=== PATIENT | male | born 1980 | race Caucasian/White ===

== ENCOUNTER 2020-11-28 19:52 | Inpatient (IN) | payer OTHER ==
[2020-11-28] MEDS ORDERED: FAMOTIDINE 20 MG TABLET PO ONE (20:55)
[2020-11-28] MEDS ORDERED: FAMOTIDINE 20 MG TABLET ONE (21:16)
[2020-11-28 21:49] LABS: ARTERIAL BLD GAS O2 SATURATION 96.5 mmHg (95-98); ARTERIAL BLOOD GAS BASE EXCESS -1.9 mmol/L (-2-2); ARTERIAL BLOOD GAS PO2 83.4 mmHg (80-100); ARTERIAL BLOOD GAS pH 7.416 (7.350-7.450)
[2020-11-28 21:50] LABS: ALLENS TEST POSITIVE
[2020-11-28 21:59] LABS: BASO % 0.5 % (0-2.0); EOS % 2.8 % (0-4.5); HEMATOCRIT 47.2 % (35.4-49); LYMPH % 9.3 % (8-40); MCH 31.2 pg (25.7-33.7); MCHC 33.8 g/dl (32.0-35.9); MEAN CELL VOLUME 92.1 fl (80-96); MEAN PLT VOLUME 7.9 fl (7.5-11.1); MONO % 6.4 % (3.8-10.2); PLATELET COUNT 419 K/MM3 (134-434); RBC 5.13 M/mm3 (4.00-5.60); RDW 13.8 % (11.9-15.9); WHITE BLOOD COUNT 20.6 K/mm3 (4.0-10.0)
[2020-11-28 22:17] LABS: CALCIUM 9.4 mg/dL (8.5-10.1)
[2020-11-28 22:18] LABS: BLOOD UREA NITROGEN 23.8 mg/dL (7-18)
[2020-11-28] MEDS ORDERED: LACTATED RINGERS SOLUTION 1000 ML INFUS.BAG IV ONE (22:21)
[2020-11-28 22:22] LABS: BILIRUBIN,TOTAL 0.3 mg/dL (0.2-1); TOT PROT 7.5 g/dl (6.4-8.2)
[2020-11-28 23:12] LABS: ANISOCYTOSIS 0; MACROCYTOSIS 1+; PLATELET ESTIMATE NORMAL
[2020-11-29 00:26] LABS: PH,URINE 5.5 (5.0-8.0); URINE APPEARANCE CLEAR; URINE BILIRUBIN NEGATIVE (NEGATIVE); URINE COLOR YELLOW; URINE GLUCOSE (UA) 1+ (NEGATIVE); URINE KETONE 2+ (NEGATIVE); URINE LEUK ESTERASE NEGATIVE (NEGATIVE); URINE NITRITE NEGATIVE (NEGATIVE); URINE PROTEIN NEGATIVE (NEGATIVE); URINE UROBILINOGEN 0.2 mg/dL (0.2-1.0)
[2020-11-29] MEDS ORDERED: SODIUM CHLORIDE 0.9% 500 ML INFUS.BAG IV ONE (06:04)
[2020-11-29 06:46] LABS: BASO % 0.6 % (0-2.0); EOS % 5.9 % (0-4.5); HEMATOCRIT 44.3 % (35.4-49); HEMOGLOBIN 15.2 GM/dL (11.7-16.9); LYMPH % 15.1 % (8-40); MCH 31.5 pg (25.7-33.7); MCHC 34.2 g/dl (32.0-35.9); MEAN PLT VOLUME 7.7 fl (7.5-11.1); MONO % 9.8 % (3.8-10.2); NEUT % 68.6 % (42.8-82.8); PLATELET COUNT 381 K/MM3 (134-434); RBC 4.82 M/mm3 (4.00-5.60); RDW 13.8 % (11.9-15.9); WHITE BLOOD COUNT 15.4 K/mm3 (4.0-10.0)
[2020-11-29 07:04] LABS: CALCIUM 8.7 mg/dL (8.5-10.1)
[2020-11-29 07:05] LABS: ALBUMIN 3.9 g/dl (3.4-5.0); BLOOD UREA NITROGEN 19.7 mg/dL (7-18)
[2020-11-29 07:07] LABS: CREATININE 0.9 mg/dL (0.55-1.3)
[2020-11-29 07:08] LABS: PHOSPHOROUS 3.6 mg/dL (2.5-4.9)
[2020-11-29 07:09] LABS: BILIRUBIN,TOTAL 0.8 mg/dL (0.2-1); TOT PROT 7.2 g/dl (6.4-8.2)
[2020-11-29 08:51] LABS: MAGNESIUM 1.9 mg/dL (1.8-2.4)
[2020-11-29] MEDS ORDERED: LISINOPRIL 5 MG TABLET ONE (08:59)
[2020-11-29] MEDS ORDERED: DULoxetine HCL 30 MG CAPSULE.DR PO ONE (08:59)
[2020-11-29] MEDS ORDERED: SPIRONOLACTONE 25 MG TABLET ONE (08:59)
[2020-11-29] MEDS ORDERED: ENOXAPARIN NA (PORCINE) 40 MG/0.4 ML DISP.SYRIN SQ ONE (09:00)
[2020-11-29] MEDS: DULoxetine HCL 30 MG CAPSULE.DR PO SCH (10:40)
[2020-11-29] MEDS: ENOXAPARIN NA (PORCINE) 40 MG/0.4 ML DISP.SYRIN SQ SCH (10:40)
[2020-11-29] MEDS: SPIRONOLACTONE 25 MG TABLET PO SCH (10:40)
[2020-11-29] MEDS: LISINOPRIL 5 MG TABLET PO SCH (10:40)
[2020-11-30 04:04] VITALS: BMI 35.4
[2020-11-30] MEDS: DULoxetine HCL 30 MG CAPSULE.DR PO SCH (09:46)
[2020-11-30] MEDS: LISINOPRIL 5 MG TABLET PO SCH (09:46)
[2020-11-30] MEDS: SPIRONOLACTONE 25 MG TABLET PO SCH (09:46)
[2020-11-30] MEDS: ENOXAPARIN NA (PORCINE) 40 MG/0.4 ML DISP.SYRIN SQ SCH (09:46)
[2020-11-30 10:21] LABS: EOS % 12.8 % (0-4.5); HEMOGLOBIN 14.4 GM/dL (11.7-16.9); LYMPH % 25.5 % (8-40); MCH 31.5 pg (25.7-33.7); MCHC 34.2 g/dl (32.0-35.9); MEAN CELL VOLUME 92.1 fl (80-96); MEAN PLT VOLUME 7.9 fl (7.5-11.1); MONO % 11.5 % (3.8-10.2); NEUT % 49.2 % (42.8-82.8); PLATELET COUNT 360 K/MM3 (134-434); RBC 4.57 M/mm3 (4.00-5.60); RDW 13.7 % (11.9-15.9); WHITE BLOOD COUNT 9.7 K/mm3 (4.0-10.0)
[2020-12-01 08:14] LABS: HEMATOCRIT 42.7 % (35.4-49); HEMOGLOBIN 14.7 GM/dL (11.7-16.9); MCH 31.7 pg (25.7-33.7); MCHC 34.3 g/dl (32.0-35.9); MEAN CELL VOLUME 92.4 fl (80-96); MEAN PLT VOLUME 7.8 fl (7.5-11.1); PLATELET COUNT 345 K/MM3 (134-434); RBC 4.62 M/mm3 (4.00-5.60); RDW 13.7 % (11.9-15.9); WHITE BLOOD COUNT 10.7 K/mm3 (4.0-10.0)
[2020-12-01 08:31] LABS: CALCIUM 8.6 mg/dL (8.5-10.1)
[2020-12-01 08:32] LABS: ALBUMIN 3.5 g/dl (3.4-5.0); BLOOD UREA NITROGEN 21.1 mg/dL (7-18)
[2020-12-01 08:35] LABS: CREATININE 0.8 mg/dL (0.55-1.3)
[2020-12-01 08:36] LABS: BILIRUBIN,TOTAL 1.1 mg/dL (0.2-1); TOT PROT 6.8 g/dl (6.4-8.2)
[2020-12-01] MEDS: SPIRONOLACTONE 25 MG TABLET PO SCH (10:00)
[2020-12-01] MEDS: ENOXAPARIN NA (PORCINE) 40 MG/0.4 ML DISP.SYRIN SQ SCH (10:00)
[2020-12-01] MEDS: DULoxetine HCL 30 MG CAPSULE.DR PO SCH (10:00)
[2020-12-01] MEDS: LISINOPRIL 5 MG TABLET PO SCH (10:00)
[2020-12-01] MEDS: NYSTATIN 100,000 UNIT/GM TOPICAL CREAM 15 GM TUBE TP SCH (22:21)
[2020-12-02] MEDS: SPIRONOLACTONE 25 MG TABLET PO SCH (11:02)
[2020-12-02] MEDS: DULoxetine HCL 30 MG CAPSULE.DR PO SCH (11:02)
[2020-12-02] MEDS: LISINOPRIL 5 MG TABLET PO SCH (11:03)
[2020-12-02] MEDS: NYSTATIN 100,000 UNIT/GM TOPICAL CREAM 15 GM TUBE TP SCH ×2 (11:03→21:21)
[2020-12-02] MEDS: ENOXAPARIN NA (PORCINE) 40 MG/0.4 ML DISP.SYRIN SQ SCH (11:03)
[2020-12-02 11:56] LABS: HEMATOCRIT 43.7 % (35.4-49); HEMOGLOBIN 14.9 GM/dL (11.7-16.9); MCH 31.4 pg (25.7-33.7); MEAN CELL VOLUME 92.3 fl (80-96); MEAN PLT VOLUME 8.1 fl (7.5-11.1); PLATELET COUNT 408 K/MM3 (134-434); RBC 4.73 M/mm3 (4.00-5.60); RDW 13.5 % (11.9-15.9); WHITE BLOOD COUNT 10.6 K/mm3 (4.0-10.0)
[2020-12-03] MEDS ORDERED: PT OWN MED DRAWER 7, Y5N ONE (09:07)
[2020-12-03] MEDS: DULoxetine HCL 30 MG CAPSULE.DR PO SCH (09:27)
[2020-12-03] MEDS: LISINOPRIL 5 MG TABLET PO SCH (09:27)
[2020-12-03] MEDS: SPIRONOLACTONE 25 MG TABLET PO SCH (09:27)
[2020-12-03] MEDS: NYSTATIN 100,000 UNIT/GM TOPICAL CREAM 15 GM TUBE TP SCH (09:28)
[2020-12-03] MEDS: ENOXAPARIN NA (PORCINE) 40 MG/0.4 ML DISP.SYRIN SQ SCH (09:28)
[2020-12-03 16:14] VITALS: BP 143/80; PULSE 112; TEMP 98.1
== END 2020-12-03 17:32 | disposition home or self-care (01) | DRG 58 ==
LOC: JER 19:52 → JERBED 23:33 → J8W 11-30 03:21
PROVIDERS: ADMIT Internal Medicine; ATTEND Internal Medicine
DX: G80.9 Cerebral palsy, unspecified (principal); Y26.XXXA Exposure to smoke, fire and flames, undetermined intent, initial encounter; Z77.9 Other contact with and (suspected) exposures hazardous to health; F64.0 Transsexualism; D72.829 Elevated white blood cell count, unspecified; Z77.128 Contact with and (suspected) exposure to other hazards in the physical environment; F41.8 Other specified anxiety disorders
CPT/HCPCS: 36415; 36600; 71045-TC-FY; 80053; 81003; 82375; 82803; 83735; 84100; 85025; 85027; 93005; 93010; 97116-GP; 97161-GP; 99285-25; C9803; U0003